=== PATIENT | male | born 1995 | race Caucasian/White ===

== ENCOUNTER 2018-07-06 12:57 | Emergency (ER) | payer SELFPAY ==
[~2018-07-06] VITALS: Ht 180.3 cm; Wt 111.4 kg
[2018-07-06 13:01] VITALS: BP 136/92; PULSE 78; TEMP 97.7
== END 2018-07-06 13:40 | disposition home or self-care (01) ==
LOC: COL.ER 12:57
DX: K02.9 Dental caries, unspecified (principal); F12.10 Cannabis abuse, uncomplicated